=== PATIENT | female | born 1995 | race Caucasian/White ===

== ENCOUNTER 2017-02-01 19:36 | Outpatient (CLI) | payer OTHER ==
[2017-04-19] MEDS ORDERED: COLACE 100MG C100 MG PO (12:32)
== END 2017-02-01 21:05 | disposition home or self-care (01) ==
LOC: GENOP 19:36
DX: O42.913 Preterm premature rupture of membranes, unspecified as to length of time between rupture and onset of labor, third trimester (principal); Z3A.29 29 weeks gestation of pregnancy
CPT/HCPCS: 83518; G0463

== ENCOUNTER → 2017-02-12 | Outpatient (CLI) | payer OTHER ==
[~2017-02-12] MED LIST: COLACE 100MG C100 MG PO
== END ==
LOC: US 02-03 10:15 → KOH-I 11:13 → US 11:30
DX: O21.9 Vomiting of pregnancy, unspecified (principal); O26.892 Other specified pregnancy related conditions, second trimester
CPT/HCPCS: 76705

== ENCOUNTER → 2020-11-05 | Outpatient (CLI) | payer OTHER ==
[~2020-11-05] MED LIST changes: +HYDROCODON-ACE1 EAC4 PO; +KEFLEX500 MG PO; +LABETALOL HCL200 MG PO; +LEXAPRO10 MG PO; +NAPROSYN EC 50500 MG PO; +OMEPRAZOLE20 M1 PO; +PRENATAL TABLE1 EAC1 PO; +SILVADENE CREAM20 GM TOP
== END ==
LOC: GENOP 14:30
DX: O36.80X0 Pregnancy with inconclusive fetal viability, not applicable or unspecified (principal); R10.9 Unspecified abdominal pain; Z3A.30 30 weeks gestation of pregnancy
CPT/HCPCS: 83518; G0463

== ENCOUNTER 2020-12-27 11:38 | Outpatient (CLI) | payer OTHER ==
[~2020-12-27 11:38] MED LIST changes: -HYDROCODON-ACE1 EAC4 PO; -LABETALOL HCL200 MG PO; -LEXAPRO10 MG PO; -NAPROSYN EC 50500 MG PO; -OMEPRAZOLE20 M1 PO; -PRENATAL TABLE1 EAC1 PO
== END 2020-12-27 13:09 | disposition home or self-care (01) ==
LOC: GENOP 11:38
DX: O42.92 Full-term premature rupture of membranes, unspecified as to length of time between rupture and onset of labor (principal); O99.891 Other specified diseases and conditions complicating pregnancy; M54.9 Dorsalgia, unspecified; Z3A.37 37 weeks gestation of pregnancy
CPT/HCPCS: 83518; G0463

== ENCOUNTER 2021-01-09 16:30 | Inpatient (IN) | payer OTHER ==
[~2021-01-09] VITALS: Ht 160 cm; Wt 106.6 kg
[2021-01-09 17:10] LABS: HEMOGLOBIN 9.5 gm/dl (12.3-15.3); RED BLOOD COUNT 3.99 M/UL (4.00-5.10); WHITE BLOOD COUNT 9.3 K/UL (4.5-11.0)
[2021-01-09] MEDS ORDERED: PRENATAL TABLE1 EAC1 PO (18:21)
[2021-01-09] MEDS ORDERED: LEXAPRO10 MG PO (18:21)
[2021-01-09] MEDS ORDERED: OMEPRAZOLE20 M1 PO (18:22)
[2021-01-10] MEDS ORDERED: HYDROCODON-ACE1 EAC4 PO (16:16)
[2021-01-10] MEDS ORDERED: COLACE 100MG C100 MG PO (16:16)
[2021-01-10] MEDS ORDERED: NAPROSYN EC 50500 MG PO (16:16)
[2021-01-11 05:01] LABS: HEMOGLOBIN 8.6 gm/dl (12.3-15.3)
[2021-01-12] MEDS ORDERED: LABETALOL HCL200 MG PO (12:13)
[2021-01-12] MEDS ORDERED: LEXAPRO10 MG PO (12:59)
== END 2021-01-12 17:31 | disposition home or self-care (01) | DRG 807 ==
LOC: GENOP 16:30 → OB 16:49
PROVIDERS: Obstetrics & Gynecology; ADMIT Obstetrics & Gynecology
PROC: 10E0XZZ Delivery of Products of Conception, External Approach (ICD-10-PCS; principal; 2021-01-09)
PROC: 0U7C7ZZ Dilation of Cervix, Via Natural or Artificial Opening (ICD-10-PCS; 2021-01-09)
PROC: 10907ZC Drainage of Amniotic Fluid, Therapeutic from Products of Conception, Via Natural or Artificial Opening (ICD-10-PCS; 2021-01-09)
PROC: 4A1HXCZ Monitoring of Products of Conception, Cardiac Rate, External Approach (ICD-10-PCS; 2021-01-09)
DX: O99.344 Other mental disorders complicating childbirth (principal); Z37.0 Single live birth; Z3A.39 39 weeks gestation of pregnancy; F32.9 Major depressive disorder, single episode, unspecified; F41.9 Anxiety disorder, unspecified; Z20.822 Contact with and (suspected) exposure to COVID-19; Z88.0 Allergy status to penicillin; O16.5 Unspecified maternal hypertension, complicating the puerperium; O76 Abnormality in fetal heart rate and rhythm complicating labor and delivery
CPT/HCPCS: 36415; 51702; 81001; 82800; 85014; 85018; 85025; 90471; 90707; 90715; J0595; J2590; J2795; J7120; U0002